=== PATIENT | female | born 1985 | race Caucasian/White ===

== ENCOUNTER → 2017-03-19 | Outpatient (CLI) | payer OTHER ==
[2017-03-19 11:40] LABS: BASO % 0.2 %; BASO ABS # 0.02 K/uL (0-0.2); COMPLETE YES; EOS % 0.5 %; HEMATOCRIT 41.7 % (37-47); IG% 0.2 %; LYMPH % 16.3 %; LYMPH ABS # 1.33 K/uL (1.2-3.4); MEAN CELL VOLUME 88.2 fL (80-100); MEAN CORPUSCULAR HEMOGLOBIN 29.6 pg (25-34); MEAN CORPUSCULAR HGB CONC 33.6 g/dl (32-36); MEAN PLATELET VOLUME 9.9 fL (7.4-10.4); MONO % 7.7 %; NEUT % 75.1 %; PLATELET COUNT 255 K/uL (130-400); RED BLOOD COUNT 4.73 M/uL (4.2-5.4); WHITE BLOOD COUNT 8.15 K/uL (4.8-10.8)
[2017-03-19 11:41] LABS: URINE APPEARANCE CLEAR (CLEAR); URINE BILIRUBIN NEG (NEG); URINE COLOR YELLOW; URINE NITRITE NEG (NEG); URINE SPECIFIC GRAVITY 1.024 (1.000-1.030); UROBILINOGEN NEG (NEG)
[2017-03-19 11:47] LABS: MANUAL MICROSCOPIC REQUIRED? NO; REVIEW REQ? NO
[2017-03-23 14:29] LABS: CHLAMYDIA TRACH RNA*** NOT DETECTED (NOT DETECTED); GC (NEIS GONORRHOEAE)RNA** NOT DETECTED (NOT DETECTED)
== END | disposition home or self-care (01) ==
LOC: C.LAB1850 10:33
PROVIDERS: ATTEND Obstetrics & Gynecology
DX: Z33.1 Pregnant state, incidental (principal)

== ENCOUNTER → 2017-05-11 | Outpatient (CLI) | payer OTHER ==
[2017-05-11 14:48] LABS: GTGD 50 Grams
== END | disposition home or self-care (01) ==
LOC: C.LAB1850 12:21
PROVIDERS: ATTEND Obstetrics & Gynecology
DX: Z34.02 Encounter for supervision of normal first pregnancy, second trimester (principal)

== ENCOUNTER → 2017-06-24 | Outpatient (CLI) | payer OTHER ==
[2017-06-24 16:47] LABS: URINE APPEARANCE CLEAR (CLEAR); URINE BILIRUBIN NEG (NEG); URINE COLOR ORANGE; URINE NITRITE NEG (NEG); URINE SPECIFIC GRAVITY 1.013 (1.000-1.030); UROBILINOGEN NEG (NEG)
[2017-06-24 16:57] LABS: MANUAL MICROSCOPIC REQUIRED? NO; REVIEW REQ? NO
== END | disposition home or self-care (01) ==
LOC: C.LAB1850 14:58
PROVIDERS: ATTEND Obstetrics & Gynecology
DX: Z34.02 Encounter for supervision of normal first pregnancy, second trimester (principal)

== ENCOUNTER → 2017-08-05 | Outpatient (CLI) | payer OTHER ==
[2017-08-05 12:20] LABS: HEMATOCRIT 33.8 % (37-47); HEMOGLOBIN 11.4 g/dL (12.0-16.0)
== END | disposition home or self-care (01) ==
LOC: C.LAB1850 10:17
PROVIDERS: ATTEND Obstetrics & Gynecology
DX: Z34.03 Encounter for supervision of normal first pregnancy, third trimester (principal); Z3A.00 Weeks of gestation of pregnancy not specified

== ENCOUNTER → 2017-10-08 | Outpatient (CLI) | payer OTHER | END | disposition home or self-care (01) | LOC: C.LABSPEC 15:25 | PROVIDERS: ATTEND Obstetrics & Gynecology | DX: Z34.03 Encounter for supervision of normal first pregnancy, third trimester (principal) ==

== ENCOUNTER → 2017-10-28 | Outpatient (CLI) | payer OTHER ==
[~2017-10-28] MED LIST: PRENTAB26 PO
== END | disposition home or self-care (01) ==
LOC: C.LABSPEC 12:22
PROVIDERS: ATTEND Obstetrics & Gynecology
DX: O42.90 Premature rupture of membranes, unspecified as to length of time between rupture and onset of labor, unspecified weeks of gestation (principal); Z3A.00 Weeks of gestation of pregnancy not specified

== ENCOUNTER 2017-11-05 09:25 | Inpatient (IN) | payer OTHER ==
[~2017-11-05] VITALS: Ht 177.8 cm; Wt 95.0 kg
[2017-11-05 10:53] LABS: HEMATOCRIT 37.3 % (37-47); MEAN CELL VOLUME 89.4 fL (80-100); MEAN CORPUSCULAR HEMOGLOBIN 31.2 pg (25-34); MEAN CORPUSCULAR HGB CONC 34.9 g/dl (32-36); MEAN PLATELET VOLUME 9.8 fL (7.4-10.4); PLATELET COUNT 218 K/uL (130-400); RED CELL DISTRIBUTION WIDTH CV 13.6 % (11.5-14.5); RED CELL DISTRIBUTION WIDTH SD 44.4 fL (36.4-46.3)
[2017-11-05 11:15] VITALS: Ht 177.8 cm; Wt 95.0 kg
[2017-11-05 11:17] LABS: ALBUMIN 2.8 gm/dl (3.4-5.0); ALT/SGPT 22 U/L (12-78); AST/SGOT 21 U/L (15-37); BLOOD UREA NITROGEN 8 mg/dl (7-18); CALCIUM 8.7 mg/dl (8.5-10.1); CARBON DIOXIDE 23 mmol/L (21-32); GLUCOSE 84 mg/dl (70-99); POTASSIUM 3.9 mmol/L (3.5-5.1); SODIUM 136 mmol/L (136-145)
[2017-11-05 11:20] LABS: ALKALINE PHOSPHATASE 164 U/L (45-117); TOTAL PROTEIN 7.2 gm/dl (6.4-8.2)
[2017-11-05] MEDS ORDERED: EpHEDrine SULFATE INJ 50 MG/ML AMP ONE (11:47)
[2017-11-05] MEDS ORDERED: BUPIVACAINE 0.25% 30 ML VIAL ONE (11:47)
[2017-11-05] MEDS ORDERED: FENTANYL CITRATE INJ 50 MCG/1 ML 2 ML VIAL ONE (11:48)
[2017-11-05] MEDS ORDERED: FENTANYL 2MCG/ML ROPIV 1.25MG/ML 100ML BAG EPI ONE (11:48)
[2017-11-05] MEDS ORDERED: LACTATED RINGER'S 1000ML 1,000 ML IV PRN (12:02)
[2017-11-05] MEDS ORDERED: PATIENT'S ALLERGY INFO NEEDS ENTERED SCH (12:15)
[2017-11-05] MEDS: LACTATED RINGER'S 1000ML 1,000 ML IV SCH ×3 (12:18→19:04)
[2017-11-05] MEDS ORDERED: LACTATED RINGER'S 1000ML 500 ML IV PRN (13:10)
[2017-11-05] MEDS ORDERED: NALOXONE HCL INJ 1 MG in SODIUM CHLORIDE 0.9% 1000ML 1,000 ML IV PRN (13:10)
[2017-11-05] MEDS ORDERED: FENTANYL 2MCG/ML ROPIV 1.25MG/ML 100ML BAG EPI PRN (13:15)
[2017-11-05] MEDS ORDERED: NALBUPHINE HCL INJ 10 MG/ML AMP IV PRN (13:15)
[2017-11-05] MEDS ORDERED: DiphenhydrAMINE HCL 50 MG/ML VIAL IV PRN (13:15)
[2017-11-05] MEDS ORDERED: EpHEDrine SULFATE INJ 50 MG/ML AMP IV PRN (13:15)
[2017-11-05] MEDS ORDERED: NALOXONE HCL INJ 0.4 MG/1 ML VIAL/CARP IV PRN (13:15)
[2017-11-05] MEDS ORDERED: ONDANSETRON INJ 2 MG/ML 2 ML VIAL IV PRN (13:15)
[2017-11-05] MEDS ORDERED: PRENTAB26 PO (13:41)
[2017-11-05] MEDS ORDERED: IV FLUIDS COMPLETED PRN (16:00)
[2017-11-05] MEDS ORDERED: OXYTOCIN 30 UNITS/500ML NSS IV ONE (18:41)
[2017-11-05] MEDS ORDERED: OXYTOCIN 30 UNITS/500ML NSS IV PRN (19:45)
[2017-11-05] MEDS ORDERED: BENZOCAINE 20% AER SPR 82.5 GM CAN EXT PRN (19:45)
[2017-11-05] MEDS ORDERED: HYDROCORTISONE ACETATE 25 MG SUPP PR PRN (19:45)
[2017-11-05] MEDS ORDERED: LANOLIN OINT EXT PRN (19:45)
[2017-11-05] MEDS ORDERED: DIPHTHERIA/TETANUS/PERTUSSIS 0.5 ML SYR/VIAL IM. ONE (19:45)
[2017-11-05] MEDS ORDERED: SUPERCREAM 0.870 % 15GM JAR EXT PRN (19:45)
[2017-11-05] MEDS ORDERED: ACETAMINOPHEN/CODEINE 300/30MG TAB PO PRN ×2 (19:45)
[2017-11-05] MEDS ORDERED: OXYCODONE/ACETAMINOPHEN 5-325 TAB PO PRN (19:45)
[2017-11-05] MEDS: DOCUSATE SODIUM 100 MG CAP PO SCH (20:39)
[2017-11-05 21:55] VITALS: BP 123/80; PULSE 75; TEMP 37.1; O2SAT 97
--- NOTE | 2017-11-05 23:02 | Anesthesia Procedure Note ---
Anesthesia Epidural Removal Nt Date & Time Nov 05, 2017 at 23:02 Vital Signs Pain Intensity: 0.0 Vital Signs Past 12 Hours Date Time Temp Pulse Resp B/P (MAP) Pulse Ox O2 Delivery O2 Flow Rate FiO2 11/05/17 21:55 97 Room Air 11/05/17 21:55 37.1 75 16 123/80 (94) 97 Room Air Notes Mental Status: alert / awake / arousable, participated in evaluation Nausea / Vomiting: adequately controlled Pain: adequately controlled Airway Patency, RR, SpO2: stable & adequate BP & HR: stable & adequate Hydration State: stable & adequate Neuraxial Anesthesia: was administered, sensory block is resolving Anesthetic Complications: no major complications apparent, pt satisfied with anesthetic care Epidural: removed without complications, with tip intact
--- NOTE | 2017-11-06 00:18 | DELIVERY SUMMARY ---
DATE OF OPERATION: 11/05/2017 VAGINAL DELIVERY NOTE Tessie presented at 41 weeks' gestation first baby to labor and delivery in early labor. She ended up having an AROM for thick meconium. heart rate was category 1. She progressed to 3 cm, received an epidural and then rapidly progressed to fully dilated. She was able to push. She did have some decelerations after each contraction pushing, so we discussed the option of episiotomy. Patient accepted a small episiotomy to expedite the second stage due to the decelerations and with combination with meconium. Small right mediolateral episiotomy was made. Baby was then delivered with a nice contraction. Mouth and the nares carefully suctioned with bulb. No nuchal cord. Baby delivered by gentle traction. No excessive force. Live vigorous infant. Cord clamped and cut. Cord gas was obtained. Cord blood obtained. Placenta removed with gentle traction. Right mediolateral episiotomy repaired with 3-0 Vicryl. Estimated blood loss 250 mL. Sponge and instrument counts correct and rectal exam negative for sutures or defects. I attest to the content of the Intraoperative Record and any orders documented therein. Any exception s are noted below.
[2017-11-06 00:45] VITALS: BP 113/76; PULSE 71; TEMP 36.8
[2017-11-06 05:05] VITALS: BP 129/78; PULSE 66; TEMP 36.7
[2017-11-06] MEDS: ACETAMINOPHEN 325 MG TAB PO PRN ×2 (06:07→14:17)
[2017-11-06 06:23] LABS: HEMATOCRIT 31.3 % (37-47); HEMOGLOBIN 10.9 g/dL (12.0-16.0)
--- NOTE | 2017-11-06 06:45 | Progress Note ---
Subjective Nov 06, 2017. Subjective conversation w/ patient, conversation w/ family, physical exam, chart review, lab review Ambulation: ambulating normally Voiding: no voiding problems Passing Gas: Yes Diet Tolerance: Regular Diet Lochia: Small Feeding Type: Breast Feeding Review of Systems Constitutional: No fever, No chills Respiratory: No cough, No shortness of breath Cardiac: No chest pain, No palpitations Abdomen: No pain, No nausea, No vomiting Female : No dysuria Objective Vital Signs Date Time Temp Pulse Resp B/P (MAP) Pulse Ox O2 Delivery O2 Flow Rate FiO2 11/06/17 05:05 36.7 66 18 129/78 (95) Room Air 11/06/17 00:45 36.8 71 18 113/76 (88) Room Air 11/06/17 00:45 Room Air 11/05/17 21:55 97 Room Air 11/05/17 21:55 37.1 75 16 123/80 (94) 97 Room Air Physical Exam General Appearance: WELL-APPEARING, WD/WN, NO APPARENT DISTRESS Respiratory/Chest: lungs clear, no respiratory distress Cardiovascular: regular rate, rhythm, no murmur Abdomen: non tender, soft Fundus: Firm, Relation to Umbilicus (at the level of the u) Extremities: non-tender, normal inspection Laboratory Results Last 24 Hours Test 11/05/17 10:36 11/06/17 05:59 White Blood Count 10.30 K/uL Red Blood Count 4.17 M/uL Hemoglobin 13.0 g/dL 10.9 g/dL Hematocrit 37.3 % 31.3 % Mean Corpuscular Volume 89.4 fL Mean Corpuscular Hemoglobin 31.2 pg Mean Corpuscular Hemoglobin Concent 34.9 g/dl RDW Standard Deviation 44.4 fL RDW Coefficient of Variation 13.6 % Platelet Count 218 K/uL Mean Platelet Volume 9.8 fL Sodium Level 136 mmol/L Potassium Level 3.9 mmol/L Chloride Level 108 mmol/L Carbon Dioxide Level 23 mmol/L Anion Gap 5.0 mmol/L Blood Urea Nitrogen 8 mg/dl Creatinine 0.80 mg/dl Estimated GFR () 111.5 Estimated GFR (Non- 96.2 BUN/Creatinine Ratio 10.3 Random Glucose 84 mg/dl Calcium Level 8.7 mg/dl Total Bilirubin 0.8 mg/dl Direct Bilirubin 0.1 mg/dl Aspartate Amino Transf (AST/SGOT) 21 U/L Alanine Aminotransferase (ALT/SGPT) 22 U/L Alkaline Phosphatase 164 U/L Total Protein 7.2 gm/dl Albumin 2.8 gm/dl Globulin 4.4 gm/dl Albumin/Globulin Ratio 0.6 Assessment and Plan Post- Day#: 1 Continue Routine Care: 32 yo female PPD1, O+/GBS-/RI. Vitals reviewed and WNL. Hgb was 13 on admission , pending this am. No sign or sx of anemia. Pt is doing well clinically. Plan; 1. Recovery following vaginal delivery; cont pp care; ambulate, control pain, support bf, monitor lochia Resident Physician Supervision Note: I interviewed and examined the patient. Discussed with Dr. Wright and agree with findings and plan as documented in the note. Any exceptions or clarifications are listed here: [None] Documented By: Deonte French
--- NOTE | 2017-11-06 07:20 | Discharge Instructions ---
Discharge Instructions Date of Service Nov 06, 2017. Admission Reason for Admission: Check Labor Discharge Discharge Diagnosis / Problem: vaginal delivery Discharge Goals Goal(s): Routine recovery after delivery Medications Continue Dispensed Medications: supercream, dermaplast, tucks, lansinoh Activity Recommendations Activity Limitations: per Instructions/Follow-up section . Instructions / Follow-Up Instructions / Follow-Up ACTIVITY RECOMMENDATIONS: * Gradual return to full activity over the next 2-3 weeks. * No lifting - nothing heavier than baby over the next 2-3 weeks. * Do not engage in vigorous exercise, sexual activity or sports until cleared by your physician. * Do not drive or operate any motorized equipment until cleared by your physician. * You may shower/bathe daily. MEDICATIONS: For discomfort or pain, you may use Acetaminophen (Tylenol), Ibuprofen (Advil), or Naproxen (Aleve) following the package directions. For constipation you may use Colace following the package directions. BREAST CARE: If you are not breast feeding: * Wear a supportive bra 24 hours a day for one to two weeks. * Avoid stimulating your breasts and nipples as much as possible during the first few weeks after delivery. * When taking a shower, have the warm water hit your back, not breasts. * When your breasts feel full, apply ice packs. Usually three to four times a day helps ease the discomfort. * Take a mild pain medication (Tylenol / Motrin) when you are uncomfortable. If breast feeding: * Use breast milk to lubricate nipples. Lansinoh cream may be used for sore nipples. You do not need to remove cream prior to breast feeding. If using a different brand of cream, check the label for directions regarding removal of cream prior to nursing. * Wear a supportive bra. * If having problems with breasts or breast feeding, call a database consultant or your health care provider. EPISIOTOMY CARE: After delivery, if you have an episiotomy (stitches), the following steps will ease discomfort and aid healing. * For the first 24 hours after delivery, place ice packs next to your episiotomy to help reduce swelling. * After the first 24 hour-period, sitz baths, either portable or in the tub, are suggested. A shower with a shower arm sprayed over the episiotomy may be comforting. * Jasmina care should be done after each voiding and bowel movement. Squirt warm water from a plastic bottle over the perineum (region of the body between the anus and urinary opening) and pat dry. * Use Dermoplast to ease discomfort. Shake container. [place] directly over the episiotomy. Place a Tucks on a clean sanitary pad next to your episiotomy. SPECIAL CARE INSTRUCTIONS: When you are discharged from the hospital, it is important for you to follow the instructions listed below: * During the first week at home, you should be able to care for yourself and your baby. In addition, the usual light household activities are encouraged. * Limit your activities to the way you feel. Do not try to clean the house or move furniture. Be sensible. * If you actively engage in sports and have done so up until the time of your delivery, you may resume these activities as soon as you feel able. This may take up to one month or even longer. Use good judgment. * Continue to take your vitamins for at least six weeks after the of your baby. * Your diet need not be limited unless you were on a special diet before your delivery. Breast-feeding mothers need around 2500 calories per day and at least 64-80 ounces of fluid per day (8 to 10 glasses). * You should eat foods from the four major food groups. Crash diets or fad diets are to be avoided. Eating lean meats, fresh fruits and vegetables, low-fat dairy products, high fiber foods and a regular exercise program, will help you get back to your pre- weight without putting your health at risk. * Constipation is sometimes a problem after delivery. Take a mild laxative as needed. If breast feeding, Milk of Magnesia is acceptable to use. You may use a suppository or Fleets enema if no episiotomy. * A daily shower or tub bath is suggested. Be sure to thoroughly and gently dry the perineum. * A bloody vaginal discharge will usually continue until around four weeks post . A small amount of bleeding may continue for as long as six weeks. Vaginal discharge changes from the bright red bleeding after delivery to pink then brownish and finally yellowish-pink before becoming white and disappearing. * Bleeding may increase with activity. Your first period may come in 4-8 weeks. If you are breast feeding, your period may be delayed even longer. * [place] (sex) can begin whenever both you and your partner feel comfortable and do not have any form of genital infection. It is recommended that you wait at least six weeks for internal and external healing to occur. If you have questions, please talk to your health care practitioner. A condom should be used to prevent infection and . * Foreplay, gentle intercourse and lubrication is very important the first several times to prevent pain. A water-based lubricant such as K-Y jelly or Astroglide may be used. * If you have RH negative blood and your baby is RH positive, you will receive RHOGAM by injection prior to discharge. The nurse will give you a card to keep with you that has the date and place that you received RHOGAM after delivery. * During your care, you had a Rubella screen done to check for the presence of rubella antibodies in your blood. If your test was negative, you will receive a Rubella vaccine prior to discharge. This vaccine may cause a fever, soreness at the injection site and flu-like symptoms. If these symptoms persist, notify your health care practitioner. is not advised for one month after a Rubella vaccine. * Verbalizes understanding of car seat law as reviewed with patient nursing. * Car Seat hand-out given and reviewed with patient by nursing. * Shaken baby information reviewed with patient by nursing. Call you doctor if: * Heavy bleeding (saturating several pads an hour) or passing clots the size of your fist. * A fever >101 degrees F (38.3 degrees C) on two occasions four hours apart and /or chills. * Unusual pain in the pelvic or vaginal areas. * "Baby Blues" lasting longer than two weeks. If you have any questions or concerns, call your health care practitioner at . FOLLOW UP VISIT: * Please call the office at to schedule a 6 week examination. It is important you keep this appointment. It is important for you to make arrangements for either yearly or twice yearly check-ups thereafter. Current Hospital Diet Patient's current hospital diet: Regular OB Diet Discharge Diet Recommended Diet: Regular Diet, Regular OB Diet Pending Studies Studies pending at discharge: no Medical Emergencies . Who to Call and When: Medical Emergencies: If at any time you feel your situation is an emergency, please call 911 immediately. . Non-Emergent Contact Non-Emergency issues call your: Primary Care Provider, Diplomatic Officer . . "Provider Documentation" section prepared by Jose Wright. .
[2017-11-06 08:15] VITALS: BP 101/59; PULSE 70; TEMP 36.6
[2017-11-06] MEDS: IBUPROFEN 600 MG TAB PO PRN ×2 (08:26→20:09)
[2017-11-06] MEDS: PRENATAL VITAMIN TAB PO SCH (08:27)
[2017-11-06] MEDS: DOCUSATE SODIUM 100 MG CAP PO SCH ×2 (08:27→20:09)
[2017-11-06 12:06] VITALS: BP 121/75; PULSE 76; TEMP 36.5
[2017-11-06 16:48] VITALS: BP 109/71; PULSE 65; TEMP 36.3
[2017-11-06] MEDS ORDERED: BISACODYL 5 MG TABEC PO SCH (20:00)
[2017-11-06 23:40] VITALS: BP 117/76; PULSE 71; TEMP 36.5; O2SAT 98
[2017-11-07 06:39] LABS: HEMATOCRIT 30.3 % (37-47); MEAN CELL VOLUME 90.4 fL (80-100); MEAN CORPUSCULAR HEMOGLOBIN 29.9 pg (25-34); PLATELET COUNT 188 K/uL (130-400); RED CELL DISTRIBUTION WIDTH CV 13.8 % (11.5-14.5); WHITE BLOOD COUNT 9.98 K/uL (4.8-10.8)
--- NOTE | 2017-11-07 06:47 | Progress Note ---
Subjective Nov 07, 2017. Subjective conversation w/ patient, physical exam Ambulation: ambulating normally Voiding: no voiding problems Passing Gas: Yes Diet Tolerance: Regular Diet Lochia: Moderate Feeding Type: Breast Feeding Pain: controlled Review of Systems Constitutional: No problem reported Respiratory: No problem reported Cardiac: No problem reported Breast: No problem reported Abdomen: No problem reported Female : No problem reported Objective Vital Signs Date Time Temp Pulse Resp B/P (MAP) Pulse Ox O2 Delivery O2 Flow Rate FiO2 11/06/17 23:40 36.5 71 18 117/76 (90) 98 Room Air 11/06/17 23:40 98 Room Air 11/06/17 16:48 36.3 65 20 109/71 (84) 11/06/17 12:06 36.5 76 20 121/75 (90) 11/06/17 08:15 36.6 70 20 101/59 (73) Physical Exam General Appearance: WELL-APPEARING, NO APPARENT DISTRESS Respiratory/Chest: no respiratory distress Cardiovascular: regular rate, rhythm Abdomen: non tender, soft Fundus: Firm Extremities: normal inspection Laboratory Results Last 24 Hours Test 11/07/17 06:09 White Blood Count 9.98 K/uL Red Blood Count 3.35 M/uL Hemoglobin 10.0 g/dL Hematocrit 30.3 % Mean Corpuscular Volume 90.4 fL Mean Corpuscular Hemoglobin 29.9 pg Mean Corpuscular Hemoglobin Concent 33.0 g/dl RDW Standard Deviation 46.0 fL RDW Coefficient of Variation 13.8 % Platelet Count 188 K/uL Mean Platelet Volume 10.0 fL Assessment and Plan Post- Day#: 2 Continue Routine Care: PPD#2 doing well. Discharge instructions discussed. RTO 6w PP.
[2017-11-07] MEDS ORDERED: BISACODYL 10 MG SUPP PR PRN (07:00)
[2017-11-07 08:00] VITALS: BP 100/63; PULSE 61; TEMP 36.4
[2017-11-07] MEDS: PRENATAL VITAMIN TAB PO SCH (08:00)
[2017-11-07] MEDS: DOCUSATE SODIUM 100 MG CAP PO SCH (08:00)
[2017-11-07] MEDS: IBUPROFEN 600 MG TAB PO PRN (12:46)
[2017-11-07 13:36] VITALS: BP_DIAS 63; PULSE 61; TEMP 36.4
== END 2017-11-07 14:44 | disposition home or self-care (01) | DRG 775 ==
LOC: C.LD 09:25 → C.OPB 09:25 → C.LD 10:16 → C.OBG 22:56
PROVIDERS: ADMIT Obstetrics & Gynecology; ATTEND Obstetrics & Gynecology
PROC: 0W8NXZZ Division of Female Perineum, External Approach (ICD-10-PCS; principal; 2017-11-05)
PROC: 10E0XZZ Delivery of Products of Conception, External Approach (ICD-10-PCS; principal; 2017-11-05)
DX: O48.0 Post-term pregnancy (principal); O77.0 Labor and delivery complicated by meconium in amniotic fluid; Z3A.41 41 weeks gestation of pregnancy; Z37.0 Single live birth

== ENCOUNTER 2020-03-18 07:37 | Inpatient (IN) ==
[2020-03-18] MEDS ORDERED: OXYTOCIN 30 UNITS/500 ML BAG IV PRN ×2 (07:47)
[2020-03-18 08:37] LABS: Hematocrit (blood only) 36.3 % (37-47); Hemoglobin 12.2 g/dL (12.0-16.0); Mean Corpuscular Hemoglobin 30.7 pg (25-34); Mean Corpuscular Volume 91.4 fL (80-100); Mean Platelet Volume 9.9 fL (7.4-10.4); Platelet Count 225 K/uL (130-400); RDW Standard Deviation 46.8 fL (36.4-46.3); Red Blood Count 3.97 M/uL (4.2-5.4)
[2020-03-18 08:42] LABS: Mean Corpuscular Hgb Conc 33.6 g/dL (32-36)
--- NOTE | 2020-03-18 08:48 | History & Physical Report ---
Date of Service March 18, 2020 Assessment & Plan (1) Prolonged , antepartum: - heart rate tracing category 1 with accelerations and variability -While the cervicals external loss is 3 cm, the internal loss is only 1 cm. -Work-up for rupture of membranes was negative on 17 March but no fluid obtained with attempted artificial rupture of membranes -Intrauterine pressure catheter placed -Pitocin per induction protocol -Anticipate vaginal delivery Admission and Anticipated Discharge Date Admission Date: March 18, 2020 History of Present Illness Chief Complaint: Induction Primary Care Provider: Felisha Aldana MD The patient is a 34-year-old 2 para 1, with an EDC of 11 March, at 41 weeks gestational age who is admitted for a postdates induction. The patient was seen on labor and delivery on 17 March to rule out rupture of membranes. Work-up was negative, and a Ash bulb was canceled secondary to progressed cervical dilatation. The patient has had a benign course. Her blood type is O+, antibody negative, rubella immune, hepatitis B negative, she declined all genetic screening, she had a normal 1 hour Glucola x2, and a negative third trimester beta strep culture. The patient was COVID-19 negative on 06 March. Allergies Allergy/AdvReac Type Severity Reaction Status Date / Time No Known Drug Allergies Allergy Unknown . Verified 03/18/20 07:45 Home Medications Home Medications Medication Instructions Recorded Confirmed Type prenat.vits,anel,mkk-spad-cuqml 1 tab PO DAILY 08/04/19 03/18/20 History potassium chloride 10 mEq 10 meq PO DAILY 02/23/20 03/18/20 History capsule,extended release Patient History Medical History Encounter for anatomic survey Graves disease Melanoma Surgical History H/O oral surgery Family History Brother Diabetes Deaf Grandmother (Maternal) Breast cancer Father Diabetes Mother Breast cancer Social History Smoking Status: Never smoker Second Hand Exposure: No; Hx Alcohol Use: No Hx Substance Use: No Preferred Language: Haitian Communication Ability: Effective Beliefs That Will Affect Care: None marital status: marital status details: Lionel Elliott (49) [phone] Current Living Situation: Spouse and Family Current Living Situation Comment: lives with spouse, son, no pets current occupational status: employed 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 Other Information That Helps Us Care for You: No Feels Safe at Home: Yes Safety Concerns: Feels Safe At This Time Physical Exam Constitutional: WD/WN, vitals as above Respiratory: Auscultation: lungs clear to auscultation bilaterally Cardiovascular: RRR, no murmur, no edema Extremities: no calf tenderness Gastrointestinal (Abdomen): Abdomen: Gravid, vertex, positive heart tones, estimated weight of 7 and half pounds Genitourinary: Cervix: 1 cm / 75%/-2, attempted rupture of membranes unsuccessful, intrauterine pressure catheter placed Results & Data ([facility] Vital Signs (Past 12 Hours) Vital Signs Temp Pulse Resp BP 03/18/20 07:55 98.8 F 18 03/18/20 07:43 95 H 139/73 Coding Level of Care Code None Diagnoses Prolonged , antepartum O48.1
[2020-03-18] MEDS: LACTATED RINGER'S 1,000 ML IV PRN ×2 (08:57→12:22)
[2020-03-18] MEDS ORDERED: fentaNYL 2MCG/ML ROPIV 1.25MG/ML 100 ML BAG EPI ONE (11:44)
[2020-03-18] MEDS ORDERED: fentaNYL citrate 100 MCG/2 ML VIAL ONE (11:44)
[2020-03-18] MEDS ORDERED: BUPIVACAINE 0.25% 30 ML VIAL ONE (11:44)
[2020-03-18] MEDS ORDERED: ePHEDrine sulfate 50 MG/ML AMP ONE (11:44)
--- NOTE | 2020-03-18 12:03 | Anesthesiology Consultation ---
Date of Service March 18, 2020 Assessment & Plan (1) Encounter for pre-operative examination: Chart Review Chart Review: Patient NOT seen in Pre Admission Testing and Acceptable Risk for Labor Epidural Consults Requested none ASA ASA2 Proposed Anesthesia Anesthesia Type: Labor Epidural Risk / Benefits Reviewed With: PT / POA / Parent / Guardian, Accepts Plan and Informed Consent Obtained History Height/Weight Height: 5 ft 10 in Weight: 100.244 kg Allergies Allergy/AdvReac Type Severity Reaction Status Date / Time No Known Drug Allergies Allergy Unknown . Verified 03/18/20 07:45 Medications Home Medications Medication Instructions Recorded Confirmed Last Taken prenat.vits,anel,ynu-jyms-pfpav 1 tab PO DAILY 08/04/19 03/18/20 03/17/20 07:00 potassium chloride 10 mEq 10 meq PO DAILY 02/23/20 03/18/20 03/16/20 07:00 capsule,extended release Active Medications Generic Name Dose Route Start Last Admin Trade Name Freq PRN Reason Stop Dose Admin Lactated Ringer's 1,000 mls @ 125 mls/hr 03/18/20 07:47 03/18/20 12:22 Lr IV 03/20/20 07:46 125 mls/hr .Q8H PRN Administration L&D Protocol Protocol Oxytocin 30 units in 500 mls @ 11 mls/hr 03/18/20 07:47 03/18/20 11:40 Pitocin IV 03/20/20 07:46 0.66 units/hr .Q24H PRN 11 mls/hr Labor Induction/Augmentation Titration Protocol 0.66 UNITS/HR NPO Date Last Intake of Fluids: 03/18/20 Time Last Intake of Fluids: 12:00 Date Last Intake of Solids: 03/18/20 Time Last Intake of Solids: 07:30 Past Medical History Medical History Encounter for anatomic survey Graves disease Melanoma Exercise / Class Metabolic Activity II 4-5 Yardwork/Stairs/Walk up hill Past Family History Family History Brother Diabetes Deaf Grandmother (Maternal) Breast cancer Father Diabetes Mother Breast cancer Past Surgical History Surgical History H/O oral surgery Past Anesthesia History No Hx of Anesthesia Complications History of PONV No Hx of PONV Social History Smoking Status: Never smoker Hx Alcohol Use: No Hx Substance Use: No Review of Systems Negative for chest pain or shortness of breath. Patient denies history of abnormal bleeding or bleeding disorder. Patient denies active use of anticoagulants other than low dose aspirin. Patient denies numbness, tingling or weakness in lower extremities. Physical Exam Vital Signs Last Vital Signs Temp 36.6 C 03/18/20 10:00 Pulse 76 03/18/20 11:10 Resp 18 03/18/20 10:00 BP 122/66 03/18/20 11:10 Constitutional not obese (Gravid uterus) ENMT Mouth: no TMJ abnormality and oral opening not small Thyromental Distance: > or= 3.5 Finger Breadths Mallampati Class: II Neck normal visual inspection; neck extension not limited Respiratory normal respiratory effort Auscultation: lungs clear to auscultation bilaterally Cardiovascular Rate/Rhythm: regular rate and regular rhythm Heart Sounds: no murmur Neurologic moves all extremities Motor/Sensory: no sensory deficit Psychiatric Orientation: alert and oriented x 3 Testing Laboratory Results 03/18/20 08:10
[2020-03-18] MEDS ORDERED: fentaNYL 2MCG/ML ROPIV 1.25MG/ML 100 ML BAG EPI PRN (12:42)
[2020-03-18] MEDS ORDERED: ePHEDrine sulfate 50 MG/ML AMP IV PRN (12:42)
[2020-03-18] MEDS ORDERED: NALOXONE HCL 0.4 MG/1 ML VIAL/CARP IV PRN (12:42)
[2020-03-18] MEDS ORDERED: ONDANSETRON INJ 2 MG/ML 2 ML VIAL IV PRN (12:42)
[2020-03-18] MEDS ORDERED: NALOXONE HCL 1 MG in SODIUM CHLORIDE 0.9% 1000ML 1,000 ML IV PRN (12:42)
[2020-03-18] MEDS ORDERED: DiphenhydrAMINE HCL 50 MG/ML VIAL IV PRN (12:42)
--- NOTE | 2020-03-18 15:41 | Labor Progress Brief Note ---
Date of Service March 18, 2020 Subjective Reason For Note: Requested By RN change of baseline Assessment & Plan (1) Prolonged , antepartum: - tracing Cat II - will begin 2nd Stage Admission and Anticipated Discharge Date Admission Date: March 18, 2020 Physical Exam Genitourinary: Cervix Complete/(+)2 Results & Data ([facility]) Vital Signs (Past 12 Hours) Vital Signs Temp Pulse Resp BP Pulse Ox 03/18/20 15:35 78 99 03/18/20 15:30 71 108/51 L 99 03/18/20 15:25 70 99 03/18/20 15:20 74 97 03/18/20 15:15 77 113/57 L 96 03/18/20 15:11 84 97 03/18/20 15:05 76 97 03/18/20 15:02 97.9 F 18 03/18/20 15:01 84 92 03/18/20 15:00 74 98 03/18/20 14:59 76 122/58 L 03/18/20 14:55 75 98 03/18/20 14:50 81 97 03/18/20 14:45 74 123/58 L 97 03/18/20 14:40 79 98 03/18/20 14:35 77 97 03/18/20 14:30 83 125/58 L 98 03/18/20 14:27 76 103/57 L 03/18/20 14:26 97.9 F 18 03/18/20 14:25 80 97 03/18/20 14:20 73 94 03/18/20 14:19 75 94 03/18/20 14:16 71 93/52 L 03/18/20 14:15 71 95 03/18/20 14:10 73 96 03/18/20 14:09 72 94 03/18/20 14:05 74 95 03/18/20 14:00 71 95 03/18/20 13:55 68 96 03/18/20 13:50 78 95 03/18/20 13:45 88 100/53 L 97 03/18/20 13:40 87 98 03/18/20 13:35 90 97 03/18/20 13:30 87 120/66 95 03/18/20 13:25 76 97 03/18/20 13:20 82 96 03/18/20 13:15 72 123/64 97 03/18/20 13:10 90 96 08/24/20 13:05 74 95 03/18/20 13:00 93 H 97 03/18/20 12:57 78 112/58 L 03/18/20 12:55 78 96 03/18/20 12:53 76 114/60 03/18/20 12:50 79 97 03/18/20 12:48 83 118/56 L 03/18/20 12:45 80 97 03/18/20 12:41 85 108/62 03/18/20 12:40 87 97 03/18/20 12:39 81 110/59 L 03/18/20 12:37 76 109/57 L 03/18/20 12:35 81 118/61 98 03/18/20 12:33 79 114/59 L 03/18/20 12:31 73 115/57 L 03/18/20 12:30 79 112/56 L 100 03/18/20 12:27 85 127/67 03/18/20 12:25 83 122/65 100 03/18/20 12:23 83 125/71 03/18/20 12:20 84 98 03/18/20 12:15 77 100 03/18/20 12:10 75 98 03/18/20 11:59 98.4 F 18 03/18/20 11:10 76 122/66 03/18/20 10:00 97.9 F 74 18 124/63 03/18/20 09:02 85 126/66 03/18/20 07:55 98.8 F 18 03/18/20 07:43 95 H 139/73 Coding Level of Care Code None Diagnoses Prolonged , antepartum O48.1
--- NOTE | 2020-03-18 16:35 | Delivery Summary ---
Vaginal Delivery Summary Date of Service March 18, 2020 Vaginal Delivery Summary Findings: Viable male with Apgars of 8 and 9. Arterial and venous cord gases are pending. Baby delivered over a midline episiotomy. Nuchal cord x1 reduced on the perineum. Cord gases and cord blood samples obtained. Placenta delivered spontaneously. Midline episiotomy repaired with 4-0 Vicryl. Estimated blood loss 300 cc. Labor Course: The patient is a 34-year-old 2 para 1, with an EDC of 11 March, at 41 weeks gestational age who is admitted for a postdates induction. The patient was seen on labor and delivery on 17 March to rule out rupture of membranes. Work-up was negative, and a Ash bulb was canceled secondary to progressed cervical dilatation. The patient has had a benign course. Her blood type is O+, antibody n egative, rubella immune, hepatitis B negative, she declined all genetic screening, she had a normal 1 hour Glucola x2, and a negative third trimester beta strep culture. The patient was COVID-19 negative on 06 March. Upon admission the patient was a 1 to 2 cm dilated. Attempt at rupture of membranes revealed no fluid. Intrauterine pressure catheter was placed and Pitocin was started per induction protocol. Patient progressed into a regular labor pattern. heart rate tracing was category 2. Patient became uncomfortable anesthesia was consulted, and an epidural was placed. The patient progressed in labor. She developed a bradycardic episode with a baseline in the 100s. Cervical check at this time showed the patient to be fully dilated. Patient began her second stage and pushed effectively. The bradycardia had now lasted for 10 minutes so a midline episiotomy was cut and with the next contraction the baby was delivered nuchal cord x1 was reduced on the perineum. Cord was clamped and cut. Cord gases and cord blood samples were obtained. Placenta was delivered spontaneously. Midline episiotomy was repaired with 4-0 Vicryl. Estimated blood loss 300 cc. Sponge and needle count was correct. [facility] Vaginal Delivery Charge Vaginal Delivery Codes: 78292 global code for the antepartum, delivery, and post-
[2020-03-18] MEDS ORDERED: ACETAMINOPHEN 325 MG TAB PO PRN (16:37)
[2020-03-18] MEDS ORDERED: SUPERCREAM 0.870% 15 GM JAR EXT PRN (16:37)
[2020-03-18] MEDS ORDERED: HYDROCORTISONE ACETATE 25 MG SUPP PR PRN (16:37)
[2020-03-18] MEDS ORDERED: BENZOCAINE 20% AER SPR 82.5 GM CAN EXT PRN (16:37)
[2020-03-18] MEDS ORDERED: DIPHTHERIA/TETANUS/PERTUSSIS 0.5 ML SYR/VIAL IM ONE (16:37)
[2020-03-18] MEDS ORDERED: ACETAMINOPHEN W/CODEINE #3 1 TAB PO PRN (16:37)
[2020-03-18 16:47] LABS: Base Excess Cord Arterial Bld -5.3 mEq/L (-9-1.8); CO2 Cord Arterial Blood 67 mmHg (39.1-73.5); HCO3 Cord Arterial Blood 25 mmol/L (19.7-28.5); PO2 Cord Arterial Blood 32 mmHg (4.1-31.7); pH Cord Arterial Blood 7.18 (7.1-7.38)
[2020-03-18 16:48] LABS: Oxygen Sat Cord Arterial Blood < 60.0 % (<60)
[2020-03-18 16:52] LABS: Base Excess Cord Venous Blood -2.4 mEq/L (-7.7-1.9); Cord Venous Blood HCO3 23 mmol/L (18.4-26.8); Cord Venous Blood PCO2 42 mmHg (30.4-57.2); Cord Venous Blood PO2 30 mmHg (14.1-43.3); Cord Venous Blood pH 7.36 (7.20-7.44)
--- NOTE | 2020-03-18 17:14 | Anesthesia Procedure Note ---
Date of Service March 18, 2020 Anesthesia Post Epidural Note Vital Signs Vital Signs: Temp Pulse Resp BP Pulse Ox 36.6 C 96 H 18 126/65 99 03/18/20 15:02 03/18/20 16:59 03/18/20 16:45 03/18/20 16:59 03/18/20 15:50 Notes Mental Status: alert / awake / arousable and participated in evaluation Nausea / Vomiting: adequately controlled Pain: adequately controlled Airway Patency, RR, SpO2: stable & adequate BP & HR: stable & adequate Hydration State: stable & adequate Neuraxial Anesthesia: was administered and sensory block is resolving Anesthetic Complications: no major complications apparent and Pt Satisfied with anesthetic care Epidural: Removed without complications and With tip intact Notes: Epidural site clean, dry and intact. No signs of edema, erythema or bruising at insertion site. Pt instructed to request anesthesia if she has residual lower extremity numbness or if she develops lower extremity pain or weakness, back pain or headache.
[2020-03-18] MEDS: IBUPROFEN 600 MG TAB PO PRN (19:49)
[2020-03-18] MEDS: DOCUSATE SODIUM 100 MG CAP PO SCH (21:09)
[2020-03-19] MEDS: IBUPROFEN 600 MG TAB PO PRN ×3 (00:10→12:58)
--- NOTE | 2020-03-19 06:23 | Obstetrical Progress Note ---
Date of Service <Anup Romero MD - Last Filed: 03/19/20 07:22> March 19, 2020 Assessment & Plan <Anup Romero MD - Last Filed: 03/19/20 07:22> (1) state: Baby is feeding. Patient is doing well, regular diet, ambulating, voiding. Pain control adequate. plan: routine care. continue ibuprofen 600 mg PO PRN. encourage ambulation. Subjective <Anup Romero MD - Last Filed: 03/19/20 07:22> Tessie Connor is a 34 year old female who delivered via on 03/18/20. No acute events overnight. Tired. Pain is a 3/10, alleviated by ibuprofen (received 600 mg x2 times since delivery), exacerbated by movement. Tolerating regular diet. Ambulating, stooling. No bowel movement, mild/minimal flatus. Lochia is described as mild bleeding, with occasional small amount of clots. Baby is doing well and . Review of systems Denies fever, chills, sweats Denies shortness of breath, difficulty breathing, chest pain, palpitations, chest pressure. Denies breast pain. Denies dysuria. Denies headache. Denies nausea or vomiting. Denies numbness, tingling, or weakness. Denies calf tenderness. Physical Exam <Anup Romero MD - Last Filed: 03/19/20 07:22> General: Alert, oriented. No acute distress. Cardiac: Regular rate and rhythm, no murmurs/rubs/gallops. Respiratory: Clear to auscultation bilat, no wheezes/rales/rhonchi. No increased work of breathing. No respiratory distress. Abdomen: Soft, mild diffuse tenderness. Uterus: Uterine fundus firm, palpable 2 cm below umbilicus. Lower Extremities: No lower extremity edema or swelling. No deep calf pain. Earnetsine's negative bilaterally. Results & Data ([facility]) <Anup Romero MD - Last Filed: 03/19/20 07:22> Vital Signs (Past 12 Hours) Vital Signs Temp Pulse Resp BP 03/19/20 03:58 37.2 C 73 16 117/73 03/19/20 00:45 37 C 80 18 109/70 03/18/20 19:50 37.4 C 84 18 117/73 03/18/20 18:30 36.7 C 89 16 116/74 <Braxton Casas Jr, MD, FACOG - Last Filed: 03/19/20 07:25> Co-Signing Physician Notes Resident Physician Supervision Note: I was present with Dr. Romero during the history and exam. I discussed the case with the resident and agree with the findings and plan as documented in the note. Any exceptions or clarifications are listed here: PE: normal abdominal exam, Pt desires d/c, instructions given, f/u in 6 weeks Documented By: Braxton Casas Jr, MD, FACOG
[2020-03-19] MEDS ORDERED: PRENATAL VITAMIN 1 TAB PO SCH (08:00)
[2020-03-19] MEDS ORDERED: FERROUS SULFATE 325 MG TAB PO SCH (08:00)
[2020-03-19] MEDS: DOCUSATE SODIUM 100 MG CAP PO SCH (08:23)
[2020-03-19] MEDS ORDERED: bisacodyL 5 MG TABEC PO SCH (20:00)
== END 2020-03-19 18:17 | disposition home or self-care (01) | DRG 807 ==
LOC: 4S1 07:37 → 4S2 18:00